=== PATIENT | male | born 1965 | race Caucasian/White ===

== ENCOUNTER 2024-01-24 10:13 | Outpatient (AMB) | payer OTHER, SELFPAY ==
--- NOTE | 2024-01-24 10:17 | MHC.OFFWIV ---
Intake Vital Signs 01/24/24 10:38 Height 5 ft 8 in Weight 141 lb BMI 21.4 BP 140/70 H Blood Pressure Location Lt brachial Position Sitting Pulse 97 Pulse Source Pulse Oximeter Temp 97.7 F Temp Source Temporal Artery Scan Pulse Oximetry (%) 99 Oxygen Delivery Method Room Air Intake Visit Reasons: EP Toe/Finger swelling after touching plant Intake Note: pt is here today for toe/finger swelling after touching plant started 1 week ago Patient Tobacco Use Status: Current everyday Tobacco user Allergies efavirenz [From Atripla] Allergy (Mild, Verified 01/24/24 10:45) flu symtoms emtricitabine [From Atripla] Allergy (Mild, Verified 01/24/24 10:45) flu symtoms Penicillins Allergy (Mild, Verified 01/24/24 10:44) tough swelling tenofovir [From Atripla] Allergy (Mild, Verified 01/24/24 10:45) flu symtoms Medication List - Last Reconciled 01/24/24 by Nacho Garcia MD No Known Home Meds Do you need a note to return to daycare/school/sports/work: No HPI EP Toe/Finger swelling after touching plant HPI Details Patient is a 58-year-old gentleman came in today to be evaluated for possible infection in his hand Patient touched a planned a week ago and after that he started feeling itchy in his fingers, he thought it will get better he has been taking Benadryl which is helping Swelling comes back On examination he does have puncture stepan on his fingers both hands With slight swelling, range of motion of fingers is almost full There is no pus, wrist has full range of motion I am treating him with doxycycline b.i.d. for 10 days And prednisone 20 mg once a day for 7 days Patient was instructed to stay away from plants and garden until hands or healing If his symptoms do not improve within 24-48 hours with medications he need to see a provider again He has no fever there is no chills no nausea vomiting no headache Patient had tetanus vaccine within 2 years he tells me. And he is sure about it [facility] Social History Patient Tobacco Use Status: Current everyday Tobacco user Review of Systems Const All systems reviewed & are unremarkable except as noted in HPI and below Physical Exam Vital Signs: Last Vital Signs Temp 97.7 F 01/24/24 10:38 Pulse 97 01/24/24 10:38 BP 140/70 H 01/24/24 10:38 Pulse Ox 99 01/24/24 10:38 Oxygen Delivery Method Room Air 01/24/24 10:38 BMI result Body Mass Index 21.4 Const General: no acute distress Orientation/consciousness: patient oriented x3 Eyes General: appearance normal, both eyes and all related structures Resp Effort & Inspection: normal respiratory effort and able to speak in complete sentences Auscultation: clear to auscultation bilaterally Neuro General: patient oriented x3 Extrem Hand/finger images: 1. Puncture amaya in different fingers with swelling of fingers, no pus no fluctuation, range of motion of fingers are almost fall, wrist with full range of motion without pain Psych Mental Status: mental status grossly normal Assessment & Plan Assessment & Plan (1) Cellulitis of hand: Code(s): L03.119 - Cellulitis of unspecified part of limb (2) Contact dermatitis: Code(s): L25.9 - Unspecified contact dermatitis, unspecified cause Qualifiers: Contact dermatitis type: allergic Contact dermatitis trigger: non-food plants Qualified Code(s): L23.7 - Allergic contact dermatitis due to plants, except food Plan Patient is a 58-year-old gentleman came in today to be evaluated for possible infection in his hand Patient touched a planned a week ago and after that he started feeling itchy in his fingers, he thought it will get better he has been taking Benadryl which is helping Swelling comes back On examination he does have puncture stepan on his fingers both hands With slight swelling, range of motion of fingers is almost full There is no pus, wrist has full range of motion I am treating him with doxycycline b.i.d. for 10 days And prednisone 20 mg once a day for 7 days Patient was instructed to stay away from plants and garden until hands or healing If his symptoms do not improve within 24-48 hours with medications he need to see a provider again He has no fever there is no chills no nausea vomiting no headache Patient had tetanus vaccine within 2 years he tells me. And he is sure about it Medications: New prednisone 20 mg PO DAILY 7 days 7 tabs 0RF doxycycline hyclate 100 mg PO BID 10 days 20 tabs 0RF Coding Level of Care Code Est Pt Level 4 (56307) Diagnoses Cellulitis of hand L03.119 Allergic contact dermatitis due to plants, except food L23.7 Contact dermatitis type: allergic Contact dermatitis trigger: non-food plants
[2024-01-24 10:38] VITALS: BP 140/70; PULSE 97; TEMP 36.5; O2SAT 99; BMI 21.4
== END 2024-01-24 11:26 | disposition home or self-care (01) ==
PROVIDERS: PCP Internal Medicine; Visit Provider Internal Medicine
DX: L03.119 Cellulitis of unspecified part of limb (principal); L23.7 Allergic contact dermatitis due to plants, except food
CPT/HCPCS: 99214

== ENCOUNTER 2024-02-21 13:32 | Outpatient (AMB) | payer OTHER, SELFPAY ==
[2024-02-21 13:52] VITALS: PULSE 103; TEMP 37.1; O2SAT 99; BMI 21.7
--- NOTE | 2024-02-21 13:52 | A.OFFVIS_ITS ---
Vital Signs 02/21/24 13:52 Height 5 ft 8 in Weight 143 lb BMI 21.7 Pulse 103 H Pulse Source Pulse Oximeter Temp 98.8 F Temp Source Oral Pulse Oximetry (%) 99 Intake Visit Reasons: HIV [place] transfer Allergies efavirenz [From Atripla] Allergy (Mild, Verified 02/21/24 13:53) flu symtoms emtricitabine [From Atripla] Allergy (Mild, Verified 02/21/24 13:53) flu symtoms Penicillins Allergy (Mild, Verified 02/21/24 13:53) tough swelling tenofovir [From Atripla] Allergy (Mild, Verified 02/21/24 13:53) flu symtoms HPI HPI HIV [place] transfer: Details: He had been seeing [facility] in [place] for HIV care. He was diagnosed in 1986 with HIV and had pneumonia. He had last CD4 count of 567 on 06/2023 and viral load undetectable. He is on Biktarvy. [facility] Medical History Fever HIV (human immunodeficiency virus infection) Social History Patient Tobacco Use Status: Current everyday Tobacco user Review of Systems Const All systems reviewed & are unremarkable except as noted in HPI and below Physical Exam Vital Signs: Last Vital Signs Temp 98.8 F 02/21/24 13:52 Pulse 103 H 02/21/24 13:52 Pulse Ox 99 02/21/24 13:52 BMI result Body Mass Index 21.7 Const General: cooperative Orientation/consciousness: patient oriented x3 HEENT Head: Yes normal to inspection Face and sinus: Yes normal facial exam Mouth: Normal oral and palatal mucosa present Teeth and gingiva: dentition normal Eyes General: appearance normal, both eyes and all related structures Pupils: Equal, round and reactive pupils present Resp Effort & Inspection: normal respiratory effort Cardio Rate: regular rate Rhythm: regular rhythm GI Palpation (GI): Soft to palpation and nontender General: Yes no CVA tenderness Back/Spine/Pelvis Back: no CVA tenderness Skin General skin exam: no rashes or lesions noted Neuro General: patient oriented x3 and moves all extremities Cranial nerves: Yes Equal, round and reactive pupils present Extrem General: Yes normal to inspection Psych Appearance: grossly normal Assessment & Plan Assessment & Plan (1) HIV (human immunodeficiency virus infection): Comment: He has been doing well He has had HIV for many years He has been doing well Code(s): B20 - Human immunodeficiency virus [HIV] disease Category: Medical Plan: Continue Biktarvy. Check labs again since last done 06/2023. Orders: Orders Basic Metabolic Panel 02/21/24 B20 - Human immunodeficiency virus [HIV] disease Liver Panel 02/21/24 B20 - Human immunodeficiency virus [HIV] disease HIV-1 RNA QN PCR Expanded 02/21/24 B20 - Human immunodeficiency virus [HIV] disease Syphilis Screen 02/21/24 B20 - Human immunodeficiency virus [HIV] disease T Spot TB 02/21/24 B20 - Human immunodeficiency virus [HIV] disease XR chest 2V 02/21/24 R50.9 - Fever, unspecified, B20 - Human immunodeficiency virus [HIV] disease Complete Blood Count Auto Diff 02/21/24 B20 - Human immunodeficiency virus [HIV] disease, R50.9 - Fever, unspecified Lymphocyte Subset Panel 3 02/21/24 B20 - Human immunodeficiency virus [HIV] disease Hepatitis C Antibody 02/21/24 B20 - Human immunodeficiency virus [HIV] disease Hepatitis A IgG 02/21/24 B20 - Human immunodeficiency virus [HIV] disease Medications: New rhcatihawu-divkurde-sesvjo ala 200-25-25 mg (Odefsey) must administer with a meal/food 1 tab PO DAILY 30 tabs 1RF 30 days Coding Level of Care Code New Pt Level 4 (69417) Diagnoses HIV (human immunodeficiency virus infection) B20
== END 2024-02-21 14:43 | disposition home or self-care (01) ==
PROVIDERS: PCP Internal Medicine; Visit Provider Internal Medicine
DX: B20 Human immunodeficiency virus [HIV] disease (principal)
CPT/HCPCS: 99204

== ENCOUNTER → 2024-02-21 13:32 | Outpatient (BNVA) | payer OTHER, SELFPAY | PROVIDERS: PCP Internal Medicine; Visit Provider Internal Medicine | DX: B20 Human immunodeficiency virus [HIV] disease (principal) | CPT/HCPCS: 99202 ==

== ENCOUNTER 2024-03-28 08:57 | Outpatient (REF) | payer MEDICAID, SELFPAY ==
[2024-03-28 15:01] LABS: MANUAL DIFF FLAG NO
[2024-03-28 15:04] LABS: Basophils Absolute Auto 0.1 X10*3/uL (0.0-0.2); Basophils Percent Auto 0.8 % (0-2); Eosinophils Absolute Auto 0.1 X10*3/uL (0.0-0.4); Eosinophils Percent Auto 1.3 % (0-4); Hematocrit 45.4 % (42.0-52.0); Imm Gran Abs Auto 0.02 X10*3/uL (0.00-0.03); Imm Gran Pct Auto 0.3 % (0.0-0.4); Lymphocytes Absolute Auto 2.2 X10*3/uL (1.2-4.9); Lymphocytes Percent Auto 36.2 % (20-40); Mean Corpuscular Hemoglobin 32.8 pg (27.0-33.0); Mean Corpuscular Volume 99.3 fL (80.0-98.0); Mean Platelet Volume 8.6 fL (9.4-12.4); Monocytes Absolute Auto 0.5 X10*3/uL (0.1-1.2); Monocytes Percent Auto 7.8 % (2-11); Neutrophils Absolute Auto 3.3 x10*3/uL (2.0-8.3); Neutrophils Percent Auto 53.6 % (45-73); Platelet Count 217 X10*3/uL (160-400); Red Blood Count 4.57 X10*6/uL (4.60-5.80); Red Cell Distribution Width 12.8 % (11.0-16.0); White Blood Count 6.1 X10*3/uL (4.8-10.8)
[2024-03-28 15:17] LABS: Alanine Aminotransferase 22 U/L (0-40); Albumin Level 4.3 g/dL (3.5-5.0); Alkaline Phosphatase 67 U/L (39-117); Anion Gap 12 (12-20); Aspartate Amino Transferase 18 U/L (5-37); Bilirubin Direct < 0.2 mg/dL (0.0-0.5); Bilirubin Total 0.2 mg/dL (0.0-1.0); Blood Urea Nitrogen 16 mg/dL (9-16); C Reactive Protein < 0.10 mg/dL (< or = 0.50); Calcium 9.7 mg/dL (8.4-10.2); Carbon Dioxide 24 mmol/L (22-29); Chloride 106 mmol/L (96-108); Cholesterol 196 mg/dL (<200); Estimated Glomerular Filt Rate > 60; Glucose Random 78 mg/dL (60-115); HDL Cholesterol 70 mg/dL (>40); LDL Cholesterol Calculated 109 mg/dL (<100); Potassium 4.2 mmol/L (3.3-5.1); Sodium 138 mmol/L (135-145); Total Protein 7.8 g/dL (6.5-8.0); Triglycerides 86 mg/dL (<150)
[2024-03-28 15:20] LABS: Anion Gap 12 (12-20); Blood Urea Nitrogen 16 mg/dL (9-16); Calcium 9.7 mg/dL (8.4-10.2); Carbon Dioxide 25 mmol/L (22-29); Chloride 106 mmol/L (96-108); Estimated Glomerular Filt Rate > 60; Glucose Random 82 mg/dL (60-115); Potassium 4.5 mmol/L (3.3-5.1); Sodium 138 mmol/L (135-145)
[2024-03-28 15:21] LABS: Rheumatoid Factor < 13.0 IU/mL (<15.0)
[2024-03-28 15:23] LABS: Estimated Average Glucose 100 mg/dL; Hemoglobin A1c % 5.1 % (<6.0)
[2024-03-28 15:39] LABS: TSH reflex Free T4 2.79 uIU/mL (0.32-4.0)
[2024-03-28 15:42] LABS: Erythrocyte Sedimentation Rate 5 MM/HR (0-15)
[2024-03-29 03:20] LABS: Syphilis Screen Nonreactive (Nonreactive)
[2024-03-29 04:33] LABS: ~HepC Num1 0.33 S/CO (0.00-0.79); ~Hepatitis C Antibody Nonreactive (Nonreactive)
[2024-03-29 04:38] LABS: HBS Num1 3.83 mIU/mL (0-7.99); HBc Num1 5.68 S/CO (0.00-0.79); ~Hepatitis B Surface Antibody NONREACTIVE (Nonreactive)
[2024-03-29 04:48] LABS: Hepatitis A Antibody IgG REACTIVE (Nonreactive); ~Hepatitis A Antibody IgG 1.05 S/CO (0.00-0.99)
[2024-03-29 05:43] LABS: HBc Num2 5.59 S/CO; HBc Num3 5.77 S/CO; Hepatitis B Core Antibody Reactive (Nonreactive)
[2024-03-29 05:44] LABS: HBsAGNum2 Reactive; HBsAGNum3 Reactive; HIV AB/AG Reactive (Nonreactive); Hepatitis B Surface Antigen Retest CNFM (Negative)
[2024-03-29 10:58] LABS: Absolute CD3 Count 1700 cells/uL (840-3060); Absolute CD4 Count 682 cells/uL (490-1740); Absolute CD8 Count 1025 cells/uL (180-1170); Absolute Lymphocytes 2362 cells/uL (850-3900); CD4 CD8 Ratio 0.67 (0.86-5.00); Percent CD3 Cells 72 % (57-85); Percent CD4 Cells 29 % (30-61); Percent CD8 Cells 43 % (12-42)
[2024-03-30 08:08] LABS: Hepatitis B Core Antibody IgM NON-REACTIVE (NON-REACTIVE)
[2024-03-30 13:29] LABS: HCV Log PCR <1.18 NOT DETECTED Log IU/mL (NOT DETECTED); HepC Viral Load <15 NOT DETECTED IU/mL (NOT DETECTED)
[2024-03-30 20:19] LABS: HIV RNA PCR Qn Copies 73 copies/mL (NOT DETECTED); HIV RNA PCR Qn Log Copies 1.86 (NOT DETECTED)
[2024-03-31 23:04] LABS: RPR Rapid Plasma Reagin NON-REACTIVE (NON-REACTIVE)
[2024-04-01 08:59] LABS: TS Negative Control Passed; TS Panel A 2; TS Panel B 1; TS Positive Control Passed; TSpotTB Negative (Negative)
[2024-04-01 12:23] LABS: HIV 1 Antibody POSITIVE (NEGATIVE); HIV 2 Antibody NEGATIVE (NEGATIVE)
[2024-04-01 15:13] LABS: Anti Nuclear Antibody Screen NEGATIVE (NEGATIVE)
== END 2024-03-28 08:58 | disposition home or self-care (01) ==
LOC: HO.CHCLDS 08:57
PROVIDERS: PCP Registered Nurse; Referring Provider Internal Medicine; Visit Provider Registered Nurse
DX: Z00.00 Encounter for general adult medical examination without abnormal findings (principal); B20 Human immunodeficiency virus [HIV] disease; M25.50 Pain in unspecified joint; R50.9 Fever, unspecified
CPT/HCPCS: 36415; 80048; 80053; 80061; 80076; 82248; 83036; 84443; 85025; 85652; 86038; 86140; 86359; 86360; 86431; 86481; 86592; 86701; 86702; 86704; 86705; 86706; 86708; 86780; 86803; 87340; 87389; 87522; 87536

== ENCOUNTER 2024-08-06 09:54 | Outpatient (REF) | payer MEDICAID, SELFPAY ==
[2024-08-06 11:39] LABS: MANUAL DIFF FLAG NO
[2024-08-06 11:57] LABS: Basophils Absolute Auto 0.1 X10*3/uL (0.0-0.2); Basophils Percent Auto 0.7 % (0-2); Eosinophils Absolute Auto 0.1 X10*3/uL (0.0-0.4); Eosinophils Percent Auto 0.9 % (0-4); Hematocrit 47.3 % (42.0-52.0); Hemoglobin 15.8 g/dl (14.0-18.0); Imm Gran Abs Auto 0.03 X10*3/uL (0.00-0.03); Imm Gran Pct Auto 0.4 % (0.0-0.4); Lymphocytes Absolute Auto 2.5 X10*3/uL (1.2-4.9); Lymphocytes Percent Auto 30.6 % (20-40); Mean Corpuscular HGB Conc 33.4 g/dl (31.0-36.0); Mean Corpuscular Hemoglobin 32.4 pg (27.0-33.0); Mean Corpuscular Volume 96.9 fL (80.0-98.0); Mean Platelet Volume 8.3 fL (9.4-12.4); Monocytes Absolute Auto 0.5 X10*3/uL (0.1-1.2); Neutrophils Percent Auto 61.4 % (45-73); Platelet Count 310 X10*3/uL (160-400); Red Blood Count 4.88 X10*6/uL (4.60-5.80); Red Cell Distribution Width 12.4 % (11.0-16.0); White Blood Count 8.1 X10*3/uL (4.8-10.8)
[2024-08-06 12:27] LABS: Alanine Aminotransferase 32 U/L (0-40); Albumin Level 4.3 g/dL (3.5-5.0); Alkaline Phosphatase 108 U/L (39-117); Anion Gap 16 (12-20); Aspartate Amino Transferase 22 U/L (5-37); Bilirubin Total 0.6 mg/dL (0.0-1.0); Blood Urea Nitrogen 11 mg/dL (9-16); Carbon Dioxide 31 mmol/L (22-29); Chloride 102 mmol/L (96-108); Estimated Glomerular Filt Rate > 60; Glucose Random 94 mg/dL (60-115); Potassium 4.3 mmol/L (3.3-5.1); Sodium 145 mmol/L (135-145); Total Protein 7.7 g/dL (6.5-8.0)
[2024-08-08 02:54] LABS: Varicella IgG Antibody 4.89 S/CO
[2024-08-08 03:09] LABS: Mumps Virus IgG Antibody <9.00 AU/mL; Rubella IgG Antibody 4.83 Index; Rubeola IgG (Measles) <13.50 AU/mL
[2024-08-08 14:34] LABS: HIV RNA PCR Qn Copies 38 copies/mL (NOT DETECTED); HIV RNA PCR Qn Log Copies 1.58 (NOT DETECTED)
== END 2024-08-06 09:55 | disposition home or self-care (01) ==
LOC: HO.HHCL 09:54
PROVIDERS: Visit Provider Internal Medicine
DX: B20 Human immunodeficiency virus [HIV] disease (principal)
CPT/HCPCS: 36415; 80053; 85025; 86735; 86762; 86765; 86787; 87536

== ENCOUNTER 2024-11-17 13:25 | Emergency (ER) | payer MEDICAID, SELFPAY ==
--- NOTE | 2024-11-17 | ECG_ITS ---
Test Reason : chest pain Blood Pressure : */* mmHG Vent. Rate : 121 BPM Atrial Rate : 121 BPM P-R Int : 156 ms QRS Dur : 88 ms QT Int : 320 ms P-R-T Axes : 67 75 40 degrees QTcB Int : 454 ms Sinus tachycardia Otherwise normal ECG No previous ECGs available Referred By: Theron Michelle Electronically Signed By: KALEIGH CHRISTIANSEN MD
--- NOTE | ~2024-11-17 | CT_ITS ---
CLINICAL HISTORY: ? PE CT angiography chest with contrast. 3D Postprocessing. Comparison: None Findings: The heart is normal size. RV/LV ratio is normal. Unremarkable thoracic aorta and great vessels. No aneurysm. No acute pulmonary embolus. The visualized thyroid and mediastinum are unremarkable. There are very mild emphysematous changes within the upper lobes. No consolidation or pleural effusion. Findings at the level of the abdomen are reported separately. The bones are intact. IMPRESSION: No evidence of pulmonary artery embolism. This document has been electronically signed by: Sameera Griffin MD on 11/17/2024 17:26:45
--- NOTE | ~2024-11-17 | CT_ITS ---
CLINICAL HISTORY: Elevated LFT CT abdomen and pelvis with contrast Comparison: None Findings: No consolidation or effusion. Unremarkable abdominal organs. No calcified gallstones. Severe thickening of the gallbladder wall. Small amount of pericholecystic fluid. Mild dilatation of the common bile duct. Moderate fecal retention within the proximal colon. No bowel obstruction. Pelvic contents unremarkable. Normal appendix. No acute fracture. No deep venous thrombosis at visualized levels. IMPRESSION: There is thickening of the gallbladder wall and a small amount of pericholecystic fluid raising the possibility of acute cholecystitis. There is also mild dilatation of the common bile duct. Recommend further evaluation with ultrasound. This document has been electronically signed by: Sameera Griffin MD on 11/17/2024 17:30:23
--- NOTE | ~2024-11-17 | XR_ITS ---
CLINICAL HISTORY: chest pain 1 view chest x-ray Comparison: None Findings: The lungs are clear. Normal size heart. No acute fracture. IMPRESSION: 1. No acute findings. This document has been electronically signed by: Sameera Griffin MD on 11/17/2024 15:40:22
[2024-11-17 13:47] VITALS: BP 146/87; PULSE 120; O2SAT 100
[2024-11-17 13:53] VITALS: BP 133/76; PULSE 126; RESP 20; TEMP 37.3; O2SAT 97; BMI 21.9
[2024-11-17 14:19] LABS: Basophils Percent Auto 0.2 % (0-2); Eosinophils Percent Auto 0.1 % (0-4); Hematocrit 41.1 % (42.0-52.0); Hemoglobin 14.5 g/dl (14.0-18.0); Imm Gran Abs Auto 0.02 X10*3/uL (0.00-0.03); Imm Gran Pct Auto 0.2 % (0.0-0.4); Lymphocytes Absolute Auto 0.4 X10*3/uL (1.2-4.9); Lymphocytes Percent Auto 4.6 % (20-40); MANUAL DIFF FLAG SCAN; Mean Corpuscular HGB Conc 35.3 g/dl (31.0-36.0); Mean Corpuscular Hemoglobin 32.7 pg (27.0-33.0); Mean Corpuscular Volume 92.8 fL (80.0-98.0); Monocytes Absolute Auto 0.2 X10*3/uL (0.1-1.2); Monocytes Percent Auto 1.9 % (2-11); Neutrophils Absolute Auto 8.2 x10*3/uL (2.0-8.3); Platelet Count 214 X10*3/uL (160-400); Red Blood Count 4.43 X10*6/uL (4.60-5.80); SCAN SMEAR FLAG 1; White Blood Count 8.8 X10*3/uL (4.8-10.8)
[2024-11-17 14:38] LABS: SLIDE REVIEW VERIFIED
[2024-11-17 14:44] LABS: Troponin-I High Sensitivity 3.4 ng/L (<3.5-35.0)
--- OUTSIDE RECORDS SUMMARY | 2024-11-17 14:46 | XMS_ITS | Patient Health Record ---
Author Organization [facility] Address [address], [place] [id number] Care Team Providers Care Senior Project Coordinator Name Role Phone [facility] Primary Care Provider Un available [facility], [facility] Unavailable [phone] Reason For Referral No Information Plan Of Treatment No Information Insurance Providers Payer Name Payer Address Payer Phone Subscriber Number Group Number Insured Name Patient Relationship to Insured Coverage Start Date Coverage End Date [facility] Be Healthy [address] [place] [phone] [id number] Francisco Resendiz Self - patient is the insured 3
[2024-11-17 14:56] LABS: Influenza A PCR NEGATIVE (Negative); Influenza B PCR NEGATIVE (Negative); Resp Syncy Virus RNA Qual PCR NEGATIVE (Negative); SARS COV2 PCR INHOUSE NEGATIVE (Negative)
--- NOTE | 2024-11-17 15:00 | ED.CHESTPAIN ---
HPI - Chest Pain General Chief Complaint: Chest Pain Stated Complaint: CHEST AND BACK PAIN Time Seen by Provider: 11/17/24 13:55 Source: patient Mode of arrival: ambulatory Limitations: no limitations History of Present Illness HPI narrative: This is a 59 years old the patient with history of HIV, anxiety, PTSD, substance abuse presented to the emergency department complaining of chest pain. He states that he has been sick for about a week having intermittent chest discomfort with the got worse while he was shoveling the snow. He was given aspirin by the time clock inspector. MD complaint: chest pain Onset (ago): day(s) (7) Timing of current episode: episodic Prior episodes: No Onset: during exertion Pain location: substernal Pain radiation: back Severity: moderate Quality: aching Relieving factors: nothing Exacerbating factors: exertion Risk Factors Coronary artery disease risk factors: smoking history Related Data Home Medications ?Medication ?Instructions ?Recorded ?Confirmed aspirin 81 mg tablet,delayed 81 mg PO DAILY 02/21/24 release baclofen 20 mg tablet 20 mg PO DAILY 02/21/24 bupropion HCl 300 mg 24 hr tablet, 300 mg PO QAM 02/21/24 extended release emtricitabine 200 mg-rilpivirine 1 tab PO DAILY 02/21/24 25 mg-tenofovir alafenam 25 mg tablet (Akshat) loperamide 2 mg capsule 2 mg PO Q6H PRN 02/21/24 methylphenidate HCl 20 mg biphasic 20 mg PO DAILY 02/21/24 50-50 capsule,extended release prazosin 2 mg capsule 2 mg PO BEDTIME 02/21/24 Previous Rx's ?Medication ?Instructions ?Recorded doxycycline hyclate 100 mg tablet 100 mg PO BID 10 days #20 tabs 01/24/24 prednisone 20 mg tablet 20 mg PO DAILY 7 days #7 tabs 01/24/24 emtricitabine 200 mg-rilpivirine 1 tab PO DAILY 30 days #30 tabs 02/23/24 25 mg-tenofovir alafenam 25 mg tablet (Akshat) Allergies Allergy/AdvReac Type Severity Reaction Status Date / Time efavirenz [From Atripla] Allergy Mild flu symtoms Verified 11/17/24 13:54 emtricitabine [From Atripla] Allergy Mild flu symtoms Verified 11/17/24 13:54 Penicillins Allergy Mild tough Verified 11/17/24 13:54 swelling tenofovir [From Atripla] Allergy Mild flu symtoms Verified 11/17/24 13:54 abacavir [From Ziagen] Allergy Angioedema Verified 11/17/24 13:54 Review of Systems Constitutional: Constitutional: Reports no additional constitutional complaints Cardiovascular: Cardiovascular: Reports no additional cardiovascular complaints Musculoskeletal: Musculoskeletal: Reports no additional musculoskeletal complaints Integumentary/Breasts: Skin/Breast: Reports system reviewed and no additional complaints, except as docu [facility] Past Medical History Medical History Fever HIV (human immunodeficiency virus infection) Social History Social History Patient Tobacco Use Status: Current everyday Tobacco user Advance Directives: No Advance Directives Information Provided: No Do you have a plan to hurt others: No Plan Physical Exam Vital Signs: Vital Signs: Last Vital Signs Temp 0 F L 11/17/24 17:30 Pulse 0 L 11/17/24 17:30 Resp 0 L 11/17/24 17:30 BP 0/0 L 11/17/24 17:30 Pulse Ox 0 L 11/17/24 17:30 O2 Del Method Room Air 11/17/24 13:53 BMI result Body Mass Index 21.9 No acute distress comfortable in the stretcher Const: General: cooperative Nutritional Appearance: average body habitus Orientation/consciousness: patient oriented x3 Limitations: no limitations HEENT: Head: Yes normal to inspection Ears: hearing grossly normal bilaterally General nose exam: Normal nares present Face and sinus: Yes normal facial exam Neck: Neck: Yes normal visual inspection and Yes full ROM Chest: Chest palpation & inspection: normal inspection of the chest Resp: Effort & Inspection: normal respiratory effort Auscultation: clear to auscultation bilaterally Cardio: Jugular venous distension: no JVD Rate: regular rate Rhythm: regular rhythm GI: Inspection: Yes normal to inspection Palpation (GI): Soft to palpation, not firm, nontender and no guarding Percussion: Yes normal to percussion Skin: General skin exam: no rashes or lesions noted, elasticity normal and turgor normal Neuro: General: patient oriented x3 Course Reevaluation(s) Reevaluation #1: Patient requested discharge, requested to go outside smoking, we offered nicotine patch and nicotine gum, but he refused. He wants to leave against medical advice he understands the risk including , we were going to repeat the 2nd troponin we were going to wait for the results of the scan chest and abdomen done because elevated LFT.. Also he is tachycardic. At this point he has decision-making capacity, I can not take his right away sign against medical advice. Patient does not want to wait signed against medical advice understand risk Time: 17:15 Reevaluation #2: Patient already left against medical advice before the CT scan was resulted CT scan showed the evidence of cholecystitis. I called the patient [phone] I asked him to come back to the emergency room to be admitted he answered I will think about I explained to him that his LFT are elevated as well he could get septic,but does not want to come back tonight. I gave him also the number of the surgeon front end developer javascript html css [phone] Dr Reddy ,again he refused to return to the ED Time: 19:29 Medications Administered Discontinued Medications Generic Name Dose Route Start Last Admin Trade Name Javad PRN Reason Stop Dose Admin Sodium Chloride 1,000 mls @ 999 mls/hr 11/17/24 15:00 11/17/24 16:41 Ns IVCONT 11/17/24 16:00 Infused .Q1H1M SUNDEEP Infusion Iohexol 100 ml 11/17/24 16:15 11/17/24 16:15 Iohexol 350 Mg/Ml 100 Ml Infus..Btl IV 11/17/24 16:16 85 ml ONCE ONE Administration Lorazepam 1 mg 11/17/24 14:55 11/17/24 15:29 Lorazepam 2 Mg/Ml Vial IVPUSH 11/17/24 14:56 1 mg ONCE ONE Administration Medical Decision Making Medical Decision Making [facility] Narrative: Patient presented with generalized malaise chest pain for at least 6 days we will obtain electrocardiogram and chest x-ray I sensitive troponin Differential Diagnosis Differential Diagnoses: The differential diagnosis associated with the presentation includes ACS/pulmonary emboli/aortic dissection Admission/Observation Consideration of admission/observation: Escalation of care including admission/observation considered Lab Data [facility] Lab Attestation statement: I reviewed the patient's lab results. 11/17/24 14:13 11/17/24 14:13 Labs: Lab Results 11/17/24 11/17/24 Range/Units 14:13 14:14 WBC 8.8 (4.8-10.8) X10*3/uL RBC 4.43 L (4.60-5.80) X10*6/uL Hgb 14.5 (14.0-18.0) g/dl Hct 41.1 L (42.0-52.0) % MCV 92.8 (80.0-98.0) fL MCH 32.7 (27.0-33.0) pg MCHC 35.3 (31.0-36.0) g/dl RDW 12.0 (11.0-16.0) % Plt Count 214 D (160-400) X10*3/uL MPV 8.0 L (9.4-12.4) fL Immature Gran % (Auto) 0.2 (0.0-0.4) % Neut % (Auto) 93.0 H (45-73) % Lymph % (Auto) 4.6 L (20-40) % [place] % (Auto) 1.9 L (2-11) % Eos % (Auto) 0.1 (0-4) % Baso % (Auto) 0.2 (0-2) % Lymph # (Auto) 0.4 L (1.2-4.9) X10*3/uL [place] # (Auto) 0.2 (0.1-1.2) X10*3/uL Eos # (Auto) 0.0 (0.0-0.4) X10*3/uL Baso # (Auto) 0.0 (0.0-0.2) X10*3/uL Abs Immat Gran (auto) 0.02 (0.00-0.03) X10*3/uL Absolute Neuts (auto) 8.2 (2.0-8.3) x10*3/uL Absolute Nucleated RBC 0.000 (0.0-0.012) X10*3/uL Nucleated RBC % (auto) 0.0 (0.0-0.2) /100WBC Smear Tech's Comments VERIFIED Sodium 138 (135-145) mmol/L Potassium 3.8 (3.3-5.1) mmol/L Chloride 105 (96-108) mmol/L Carbon Dioxide 20 L (22-29) mmol/L Anion Gap 17 (12-20) BUN 14 (9-16) mg/dL Creatinine 0.78 (0.5-1.4) mg/dL Estim Creat Clear Calc 93.8 Estimated GFR > 60 Random Glucose 100 (60-115) mg/dL Calcium 9.4 (8.4-10.2) mg/dL Total Bilirubin 3.8 H (0.0-1.0) mg/dL AST 145 H (5-37) U/L ALT 155 H (0-40) U/L Alkaline Phosphatase 343 H (39-117) U/L Troponin I High Sens 3.4 (<3.5-35.0) ng/L Total Protein 8.0 (6.5-8.0) g/dL Albumin 4.0 (3.5-5.0) g/dL Lipase 123 H (8-78) U/L Influenza Type A (PCR) NEGATIVE (Negative) Influenza Type B (PCR) NEGATIVE (Negative) RSV RNA Qual (PCR) NEGATIVE (Negative) SARS-CoV-2 RNA (RT-PCR) NEGATIVE (Negative) Independent Interpretation I performed an independent interpretation of an: EKG Interpretation: EKG was reviewed interpreted by me as a sinus tach no acute ischemic changes Discharge Plan Discharge Clinical Impression: Elevated LFTs Chest pain Qualifiers: Chest pain type: unspecified Qualified Code(s): R07.9 - Chest pain, unspecified Patient Disposition: Left Against Medical Advice Prescriptions: No Action prednisone 20 mg tablet 20 mg PO DAILY 7 Days Qty: 7 0RF doxycycline hyclate 100 mg tablet 100 mg PO BID 10 Days Qty: 20 0RF Odefsey 200-25-25 mg tablet 1 tab PO DAILY Rx Instructions: must administer with a meal/food loperamide 2 mg capsule 2 mg PO Q6H PRN aspirin 81 mg tablet,delayed release (DR/EC) 81 mg PO DAILY baclofen 20 mg tablet 20 mg PO DAILY methylphenidate HCl 20 mg capsule,ER biphasic 50-50 20 mg PO DAILY bupropion HCl 300 mg tablet extended release 24 hr 300 mg PO QAM prazosin 2 mg capsule 2 mg PO BEDTIME Odefsey 200-25-25 mg tablet 1 tab PO DAILY 30 Days Qty: 30 1RF Rx Instructions: must administer with a meal/food Stand Alone Forms: Against Medical Advice Interventions: ED Discharge Assessment Last Done: 11/17/24 17:30 Discharge Date/Time: 11/17/24 17:20 Print Language: Tuvaluan
[2024-11-17 15:01] LABS: Alanine Aminotransferase 155 U/L (0-40); Alkaline Phosphatase 343 U/L (39-117); Anion Gap 17 (12-20); Aspartate Amino Transferase 145 U/L (5-37); Bilirubin Total 3.8 mg/dL (0.0-1.0); Blood Urea Nitrogen 14 mg/dL (9-16); Calcium 9.4 mg/dL (8.4-10.2); Carbon Dioxide 20 mmol/L (22-29); Chloride 105 mmol/L (96-108); Creatinine Clr Calc Pharmacy 93.8; Estimated Glomerular Filt Rate > 60; Glucose Random 100 mg/dL (60-115); Potassium 3.8 mmol/L (3.3-5.1); Sodium 138 mmol/L (135-145)
[2024-11-17] MEDS: 0.9 % Sodium Chloride 1,000 ML 999 ML IVCONT (15:26)
[2024-11-17] MEDS: LORazepam 2 MG/ML VIAL 1 MG IVPUSH (15:29)
[2024-11-17 15:31] LABS: Lipase 123 U/L (8-78)
[2024-11-17] MEDS: iohexoL 350 MG/ML 100 ML INFUS..BTL IV (16:15)
--- NOTE | 2024-11-17 17:24 | PC.NURSE ---
patient was provided a meal around 4:30pm and was happy calm cooperative. patient suddenly after meal had to urinate and after RN went to obtain urine and pt had cigarette in hand. patient wanted to go outside to smoke and RN stated that he can not at this time but can be provided alternatives while waiting, such as gum or a patch. Pt became agitated and did not want to further cooperate with care. MD asked to come bedside and speak with pt. pt refused further diagnostics or to wait for CT scan results. AMA forms obtained and signed. IV d/c dsd applied. pt assisted to triage with security at side for ride home.
[2024-11-17 17:30] VITALS: BP 0/0; PULSE 0; RESP 0; TEMP -17.7; TEMP 0; O2SAT 0
== END 2024-11-17 17:20 | disposition left against medical advice (07) ==
PROVIDERS: Emergency Medicine; Emergency Provider Emergency Medicine
DX: R07.89 Other chest pain (principal); M54.50 Low back pain, unspecified; R79.89 Other specified abnormal findings of blood chemistry; R11.0 Nausea; R00.0 Tachycardia, unspecified; R10.2 Pelvic and perineal pain; Z03.818 Encounter for observation for suspected exposure to other biological agents ruled out; Z87.891 Personal history of nicotine dependence; Z79.899 Other long term (current) drug therapy
CPT/HCPCS: 0241U; 36415; 71045; 71275; 74177; 80053; 83690; 84484; 85025; 93005; 96361; 96374; 99283; 99284; J2060; Q9967

== ENCOUNTER → 2024-11-17 14:27 | Outpatient (BNV) | payer MEDICAID, SELFPAY | PROVIDERS: Emergency Provider Emergency Medicine; Visit Provider Internal Medicine Cardiovascular Disease | DX: R07.9 Chest pain, unspecified (principal); R00.0 Tachycardia, unspecified | CPT/HCPCS: 93010 ==

== ENCOUNTER → 2024-11-17 14:40 | Outpatient (BNV) | payer MEDICAID, SELFPAY | PROVIDERS: Emergency Provider Emergency Medicine; Visit Provider Radiology Diagnostic Radiology | DX: R74.01 Elevation of levels of liver transaminase levels (principal); R07.9 Chest pain, unspecified; M54.9 Dorsalgia, unspecified | CPT/HCPCS: 71045; 71275; 74177 ==

== ENCOUNTER 2024-11-22 08:42 | Outpatient (REF) | payer MEDICAID, SELFPAY ==
--- OUTSIDE RECORDS SUMMARY | 2024-11-25 08:45 | XMS_ITS | Patient Health Record ---
Author Organization [facility] Address [address], [place] [id number] Care Team Providers Care Solution Consultant Name Role Phone [facility] Primary Care Provider Un available [facility], [facility] Unavailable [phone] Reason For Referral No Information Plan Of Treatment No Information Insurance Providers Payer Name Payer Address Payer Phone Subscriber Number Group Number Insured Name Patient Relationship to Insured Coverage Start Date Coverage End Date [facility] Be Healthy [address] [place] [phone] [id number] Francisco Resendiz Self - patient is the insured 3
== END 2024-11-22 08:43 | disposition home or self-care (01) ==
LOC: HO.HOSX 08:42
PROVIDERS: Visit Provider Physician Assistant
DX: Z13.89 Encounter for screening for other disorder (principal)

== ENCOUNTER 2024-12-19 12:40 | Outpatient (REF) | payer MEDICAID, SELFPAY ==
--- OUTSIDE RECORDS SUMMARY | 2024-12-19 15:59 | XMS_ITS | Patient Health Record ---
Author Organization [facility] Address [address], [place] [id number] Care Team Providers Care Accounts Receivable Associate Name Role Phone [facility] Primary Care Provider Un available [facility], [facility] Unavailable [phone] Reason For Referral No Information Plan Of Treatment No Information Insurance Providers Payer Name Payer Address Payer Phone Subscriber Number Group Number Insured Name Patient Relationship to Insured Coverage Start Date Coverage End Date [facility] Be Healthy [address] [place] [phone] [id number] Francisco Resendiz Self - patient is the insured 3
[2024-12-19 16:11] LABS: MANUAL DIFF FLAG NO
[2024-12-19 16:23] LABS: Basophils Absolute Auto 0.1 X10*3/uL (0.0-0.2); Basophils Percent Auto 0.6 % (0-2); Eosinophils Absolute Auto 0.1 X10*3/uL (0.0-0.4); Eosinophils Percent Auto 0.9 % (0-4); Hemoglobin 15.3 g/dl (14.0-18.0); Imm Gran Abs Auto 0.03 X10*3/uL (0.00-0.03); Imm Gran Pct Auto 0.4 % (0.0-0.4); Lymphocytes Percent Auto 24.2 % (20-40); Mean Corpuscular HGB Conc 33.3 g/dl (31.0-36.0); Mean Corpuscular Hemoglobin 31.9 pg (27.0-33.0); Mean Platelet Volume 9.3 fL (9.4-12.4); Monocytes Absolute Auto 0.4 X10*3/uL (0.1-1.2); Monocytes Percent Auto 5.1 % (2-11); Neutrophils Absolute Auto 5.6 x10*3/uL (2.0-8.3); Neutrophils Percent Auto 68.8 % (45-73); Platelet Count 247 X10*3/uL (160-400); Red Blood Count 4.79 X10*6/uL (4.60-5.80); Red Cell Distribution Width 13.2 % (11.0-16.0); White Blood Count 8.2 X10*3/uL (4.8-10.8)
[2024-12-19 17:01] LABS: Alanine Aminotransferase 27 U/L (0-40); Albumin Level 4.1 g/dL (3.5-5.0); Alkaline Phosphatase 173 U/L (39-117); Aspartate Amino Transferase 22 U/L (5-37); Bilirubin Direct 0.3 mg/dL (0.0-0.5); Bilirubin Total 0.5 mg/dL (0.0-1.0); Total Protein 8.5 g/dL (6.5-8.0)
[2024-12-19 17:12] LABS: Prostate Specific Antigen 1.01 ng/mL (<0.05-4.0)
[2024-12-20 04:23] LABS: HBS Num1 2.61 mIU/mL (0-7.99); HBc Num1 9.89 S/CO (0.00-0.79); ~Hepatitis B Surface Antibody NONREACTIVE (Nonreactive)
[2024-12-20 05:25] LABS: HBc Num3 9.84 S/CO; HBsAGNum2 Reactive; HBsAGNum3 Reactive; Hepatitis B Core Antibody Reactive (Nonreactive); Hepatitis B Surface Antigen Retest CNFM (Negative)
[2024-12-20 14:48] LABS: HIV RNA PCR Qn Copies 135 copies/mL (NOT DETECTED); HIV RNA PCR Qn Copies 41 copies/mL (NOT DETECTED); HIV RNA PCR Qn Log Copies 1.61 (NOT DETECTED); HIV RNA PCR Qn Log Copies 2.13 (NOT DETECTED)
[2024-12-21 07:03] LABS: Hepatitis B Core Antibody IgM NON-REACTIVE (NON-REACTIVE)
[2024-12-24 14:33] LABS: Absolute CD4 Count 680 cells/uL (490-1740); Absolute CD8 Count 868 cells/uL (180-1170); Absolute Lymphocytes 2213 cells/uL (850-3900); CD4 CD8 Ratio 0.78 (0.86-5.00); Percent CD4 Cells 31 % (30-61); Percent CD8 Cells 39 % (12-42)
== END 2024-12-19 12:41 | disposition home or self-care (01) ==
LOC: HO.HHCL 12:40
PROVIDERS: Internal Medicine; Visit Provider Registered Nurse
DX: Z00.00 Encounter for general adult medical examination without abnormal findings (principal); B18.1 Chronic viral hepatitis B without delta-agent; B20 Human immunodeficiency virus [HIV] disease
CPT/HCPCS: 36415; 80076; 84153; 85025; 86360; 86704; 86705; 86706; 87340; 87536

== ENCOUNTER 2024-12-31 09:06 | Outpatient (AMB) | payer MEDICAID, SELFPAY ==
--- NOTE | 2024-12-31 09:19 | MHC.OFFVIS ---
Vital Signs 12/31/24 09:30 Height 5 ft 7 in Weight 147 lb 8 oz BMI 23.1 BP 154/88 H Blood Pressure Location Lt brachial Position Sitting Pulse 100 Intake Visit Reasons: gallbladder Intake Note: Patient is seen in office for evaluation of the gallbladder Pt c/o: admits to abdominal pain radiates to the groin, nausea, vomit, diarrhea, worse with meals, onset about 6 months, increase pain CT: 11/17/24 PCP:12/17/24 Mobile Application Architect Required: No Accompanied by: Self / Same As Patient Allergies efavirenz [From Atripla] Allergy (Mild, Verified 12/31/24 09:25) flu symtoms emtricitabine [From Atripla] Allergy (Mild, Verified 12/31/24 09:25) flu symtoms Penicillins Allergy (Mild, Verified 12/31/24 09:25) tough swelling tenofovir [From Atripla] Allergy (Mild, Verified 12/31/24 09:25) flu symtoms abacavir [From Ziagen] Allergy (Verified 12/31/24 09:25) Angioedema HPI Comments Details: 59-year-old male patient presenting with a past medical history of HIV on antiviral medication and a recent history of complaints of chest pain. He was evaluated in the emergency department and noted to have elevated LFTs. Subsequent CT abdomen and pelvis revealed a distended gallbladder with thickened wall and evidence of pericholecystic fluid. The common bile duct was noted to be mildly enlarged. No gallstones were noted by CT. Since this time he continues to have some right and left flank pain. He also describes a colic stool and dark urine. He denies nausea, vomiting, fever or chills. [facility] Medical History Fever HIV (human immunodeficiency virus infection) Social History Patient Tobacco Use Status: Current everyday Tobacco user Review of Systems Const All systems reviewed & are unremarkable except as noted in HPI and below Physical Exam Vital Signs: Last Vital Signs Pulse 100 12/31/24 09:30 BP 154/88 H 12/31/24 09:30 BMI result Body Mass Index 23.1 Const General: cooperative and no acute distress Nutritional Appearance: well nourished Orientation/consciousness: patient oriented x3 Limitations: no limitations HEENT Head: Yes normocephalic and Yes atraumatic Ears: hearing grossly normal bilaterally Resp Effort & Inspection: normal respiratory effort, no audible wheezes, no cough and no respiratory distress Cardio Jugular venous distension: no JVD GI Inspection: Yes normal to inspection Palpation (GI): Soft to palpation and Tenderness to palpation present (GI) in the epigastrum and in the RUQ; Barone's sign negative, with no rebound tenderness and Rovsing's sign negative Percussion: Yes normal to percussion Auscultation: normal bowel sounds Rectal Exam - Male: Yes deferred Skin Other: Warm, dry, no rash General skin exam: no rashes or lesions noted Neuro General: patient oriented x3 Extrem General: Yes no clubbing, cyanosis or edema Assessment & Plan Assessment & Plan (1) Cholecystitis: Code(s): K81.9 - Cholecystitis, unspecified Category: Medical Plan 59-year-old male patient presenting with complaints of abdominal pain with evidence of a thickened and enlarged gallbladder with no gallstones. His pain is somewhat atypical for cholecystitis although he does describe a colic stools which is concerning for common bile duct stone passage. He reports currently the symptoms have improved but he would really like his gallbladder out. I recommended obtaining an ultrasound of the abdomen to confirmed the CT findings and to evaluate for cholelithiasis. He expressed understanding and agrees with the plan. I recommended he return following the ultrasound to review the studies and discuss treatment options. Orders: Orders US abdomen complete Today K81.9 - Cholecystitis, unspecified Coding Level of Care Code New Pt Level 4 (40008) Diagnoses Cholecystitis K81.9
[2024-12-31 09:30] VITALS: BP 154/88; PULSE 100; BMI 23.1
--- OUTSIDE RECORDS SUMMARY | 2024-12-31 10:01 | XMS_ITS | Patient Health Record ---
Author Organization [facility] Address [address], [place] [id number] Care Team Providers Care Molecular Pathologist Name Role Phone [facility] Primary Care Provider Un available [facility], [facility] Unavailable [phone] Reason For Referral No Information Plan Of Treatment No Information Insurance Providers Payer Name Payer Address Payer Phone Subscriber Number Group Number Insured Name Patient Relationship to Insured Coverage Start Date Coverage End Date [facility] Be Healthy [address] [place] [address] [phone] [id number] Francisco Resendiz Self - patient is the insured 3
== END 2024-12-31 09:45 | disposition home or self-care (01) ==
LOC: HO.HGS 09:06
PROVIDERS: PCP Registered Nurse; Visit Provider Surgery
DX: K81.9 Cholecystitis, unspecified (principal)
CPT/HCPCS: 99204

== ENCOUNTER → 2024-12-31 09:06 | Outpatient (BNVA) | payer MEDICAID, SELFPAY | PROVIDERS: PCP Registered Nurse; Visit Provider Surgery | DX: K81.9 Cholecystitis, unspecified (principal); B20 Human immunodeficiency virus [HIV] disease; R07.9 Chest pain, unspecified | CPT/HCPCS: 99202 ==

== ENCOUNTER 2025-01-28 07:34 | Outpatient (REF) | payer MEDICAID, SELFPAY ==
--- NOTE | ~2025-01-28 | US_ITS ---
CLINICAL HISTORY: K81.9 - Cholecystitis, unspecified --- Additional Notes or Special Instructions: Ab dominal pain right upper quadrant radiating into the back US abdomen complete Comparison: None Findings: Gallbladder contracted and not well assessed. Apparent wall thickening may be due to contraction. Consider follow-up study after longer period of no oral intake. Alternatively, nuclear hepatobiliary scan may be of value. Common duct measures 8.6 mm. Positive sonographic Barone sign. Liver is homogeneous and normal in size and echogenicity. Main portal vein patent with normal direction of flow. Pancreas is unremarkable. Aorta and IVC patent and normal in caliber. The right kidney is normal, 12.0 cm in length. No focal abnormality or hydronephrosis. The left kidney is normal, 11.8 cm in length. No focal abnormality or hydronephrosis. The spleen is normal, 11.1 cm in length. No focal abnormality. Impression: Gallbladder contracted and not well assessed Common duct dilation noted with apparent gallbladder wall thickening Recommend either short-term repeat ultrasound or nuclear hepatobiliary scan This document has been electronically signed by: Jose Pelayo MD on 01/28/2025 20:24:35
--- OUTSIDE RECORDS SUMMARY | 2025-01-28 07:36 | XMS_ITS | Patient Health Record ---
Author Organization [facility] Address [address], [place] [id number] Care Team Providers Care Resin Coater Name Role Phone [facility] Primary Care Provider Un available [facility], [facility] Unavailable [phone] Reason For Referral No Information Plan Of Treatment No Information Insurance Providers Payer Name Payer Address Payer Phone Subscriber Number Group Number Insured Name Patient Relationship to Insured Coverage Start Date Coverage End Date [facility] Be Healthy [address] [place] [address] [id number] Francisco Resendiz Self - patient is the insured 3
== END 2025-01-28 07:35 | disposition home or self-care (01) ==
LOC: HO.HMGCX 07:34
PROVIDERS: PCP Registered Nurse; Visit Provider Surgery
DX: K81.9 Cholecystitis, unspecified (principal)
CPT/HCPCS: 76700

== ENCOUNTER → 2025-01-28 08:02 | Outpatient (BNV) | payer MEDICAID, SELFPAY | PROVIDERS: PCP Registered Nurse; Visit Provider Radiology Diagnostic Radiology | DX: K81.9 Cholecystitis, unspecified (principal); R10.11 Right upper quadrant pain | CPT/HCPCS: 76700 ==

== ENCOUNTER 2025-02-10 11:36 | Outpatient (AMB) | payer MEDICAID, SELFPAY ==
--- NOTE | 2025-02-10 11:37 | A.OFFVIS_ITS ---
Vital Signs 02/10/25 11:43 Height 5 ft 7 in Weight 140 lb 4 oz BMI 22.0 BP 114/84 Blood Pressure Location Lt brachial Position Sitting Pulse 111 H Intake Visit Reasons: s/p US 01/28/25 Intake Note: Patient is seen in office for ultrasound results, following gallbladder. Pt c/o: continued pain, diarrhea after every meal, here to discuss possible removal of the gallbladder CT:01/28/25 Geotechnical Engineering Technician Required: No Accompanied by: Self / Same As Patient Allergies efavirenz [From Atripla] Allergy (Mild, Verified 12/31/24 09:25) flu symtoms emtricitabine [From Atripla] Allergy (Mild, Verified 12/31/24 09:25) flu symtoms Penicillins Allergy (Mild, Verified 12/31/24 09:25) tough swelling tenofovir [From Atripla] Allergy (Mild, Verified 12/31/24 09:25) flu symtoms abacavir [From Ziagen] Allergy (Verified 12/31/24 09:25) Angioedema HPI Comments Details: 59-year-old male patient returning for re-evaluation of his abdominal pain felt mainly in the right upper quadrant. His past medical history is significant for HIV, hypertension, neuropathy, ADD, PTSD and tobacco use. Since his last visit he reports persistent pain mainly in the right upper quadrant radiating into the right back. This evaluation in the emergency department revealed elevated liver function tests. Subsequent CT abdomen and pelvis revealed distended gallbladder with thickened wall without evidence of gallstones. There was evidence of pericholecystic fluid. The common bile duct was mildly enlarged at 8 mm. He reports losing weight since his last visit but occasionally feels bloated. He underwent ultrasound of the abdomen which revealed a contracted gallbladder with a thickened gallbladder wall but no definite cholelithiasis. He denies nausea, vomiting, fever or chills. He reports a prior history of a cervical disc injury but denies injury to the lower spine. He presents today to discuss possible cholecystectomy. [facility] Medical History Fever HIV (human immunodeficiency virus infection) Social History Patient Tobacco Use Status: Current everyday Tobacco user Review of Systems Const All systems reviewed & are unremarkable except as noted in HPI and below Physical Exam Const General: cooperative and no acute distress Nutritional Appearance: well nourished Orientation/consciousness: patient oriented x3 Limitations: no limitations HEENT Head: Yes normocephalic and Yes atraumatic Ears: hearing grossly normal bilaterally Resp Effort & Inspection: normal respiratory effort, no audible wheezes, no cough and no respiratory distress Cardio Jugular venous distension: no JVD GI Inspection: Yes normal to inspection Palpation (GI): Soft to palpation and Tenderness to palpation present (GI) in the epigastrum and in the RUQ; Barone's sign negative, with no rebound tenderness and Rovsing's sign negative Percussion: Yes normal to percussion Auscultation: normal bowel sounds Rectal Exam - Male: Yes deferred Skin Other: Warm, dry, no rash General skin exam: no rashes or lesions noted Neuro General: patient oriented x3 Extrem General: Yes no clubbing, cyanosis or edema Assessment & Plan Assessment & Plan (1) Cholecystitis: Code(s): K81.9 - Cholecystitis, unspecified Category: Medical (2) Acalculous cholecystitis: Code(s): K81.9 - Cholecystitis, unspecified Category: Medical Plan 59-year-old male patient presenting with persistent abdominal pain and tenderness in the right upper quadrant radiating to the back. Workup with both CT and ultrasound confirmed a thickened gallbladder wall with no definite coli lithiasis appreciated. Common bile duct is mildly dilated although no common duct stones are identified. Radiologic findings are suggestive of cholecystitis although it is difficult to know for sure if cholecystectomy will improve his symptoms. I reviewed the procedure, risks, and alternatives to laparoscopic or possible open cholecystectomy in detail and he consents to the surgery. He understands that it is possible that his symptoms we will continue following the cholecystectomy. He wishes to proceed with the surgery. Coding Level of Care Code Est Pt Level 4 (80936) Diagnoses Cholecystitis K81.9 Acalculous cholecystitis K81.9
[2025-02-10 11:43] VITALS: BP 114/84; PULSE 111; BMI 22.0
== END 2025-02-10 12:06 | disposition home or self-care (01) ==
LOC: HO.HGS 11:36
PROVIDERS: PCP Registered Nurse; Visit Provider Surgery
DX: K81.9 Cholecystitis, unspecified (principal)
CPT/HCPCS: 99214

== ENCOUNTER → 2025-02-10 11:36 | Outpatient (BNVA) | payer MEDICAID, SELFPAY | PROVIDERS: PCP Registered Nurse; Visit Provider Surgery | DX: K81.9 Cholecystitis, unspecified (principal) | CPT/HCPCS: 99212 ==

== ENCOUNTER → 2025-03-26 06:06 | Day surgery (SDC) | payer MEDICAID, SELFPAY ==
--- OUTSIDE RECORDS SUMMARY | 2025-02-14 06:42 | XMS_ITS | Patient Health Record ---
Author Organization [facility] Address [address], [place] [phone] Care Team Providers Care Subsurface Augmentee Elint Operator Name Role Phone [facility] Primary Care Provider Un available [facility], [facility] Unavailable [phone] Reason For Referral No Information Plan Of Treatment No Information Insurance Providers Payer Name Payer Address Payer Phone Subscriber Number Group Number Insured Name Patient Relationship to Insured Coverage Start Date Coverage End Date [facility] Be Healthy [address] [place] [address] [id number] Francisco Resendiz Self - patient is the insured 3
[2025-03-24 07:45] VITALS: BMI 21.9
--- NOTE | 2025-03-25 08:59 | HO.ANESPROP2 ---
HPI - Anesthesia Eval Consult details Narrative: 59yo M for Cholecystectomy Laparoscopic,possible open PMFSH Active Problems Active Problems: All Active Problems Acalculous cholecystitis (Acute) Cholecystitis (Acute) Contact dermatitis (Acute) Cellulitis of hand (Acute) Fever (Acute) HIV (human immunodeficiency virus infection) (Acute) Past Medical History Medical History (Updated 03/24/25 @ 07:51 by Clara Levi RN) Diarrhea Tobacco dependence Neuropathy CVA (cerebral vascular accident) Hepatitis HTN (hypertension) PTSD (post-traumatic stress disorder) ADD (attention deficit disorder) Fever HIV (human immunodeficiency virus infection) Social History Social History Patient Tobacco Use Status: Current everyday Tobacco user Meds Allergies Allergy/AdvReac Type Severity Reaction Status Date / Time efavirenz [From Atripla] Allergy Mild flu symtoms Verified 12/31/24 09:25 emtricitabine [From Atripla] Allergy Mild flu symtoms Verified 12/31/24 09:25 Penicillins Allergy Mild tough Verified 12/31/24 09:25 swelling tenofovir [From Atripla] Allergy Mild flu symtoms Verified 12/31/24 09:25 abacavir [From Ziagen] Allergy Angioedema Verified 12/31/24 09:25 Sulfa (Sulfonamide Allergy Unknown Verified 03/24/25 07:48 Antibiotics) Home Medications ?Medication ?Instructions ?Recorded ?Confirmed ?Last Taken ?Type aspirin 81 mg tablet,delayed 81 mg PO DAILY 02/21/24 Unknown History release baclofen 20 mg tablet 20 mg PO DAILY 02/21/24 Unknown History bupropion HCl 300 mg 24 hr tablet, 300 mg PO QAM 02/21/24 Unknown History extended release loperamide 2 mg capsule 2 mg PO Q6H PRN 02/21/24 Unknown History methylphenidate HCl 20 mg biphasic 20 mg PO DAILY 02/21/24 Unknown History 50-50 capsule,extended release prazosin 2 mg capsule 2 mg PO BEDTIME 02/21/24 Unknown History lorazepam 0.5 mg tablet (Ativan) 0.5 mg PO DAILY PRN 12/31/24 Unknown History Exam Height,Weight and Vital Signs: Height 5 ft 7 in Weight 63.503 kg Pertinent Lab Results Pertinent Lab Results: Laboratory Tests 11/17/24 12/19/24 14:13 12:44 WBC 8.2 Hgb 15.3 Hct 46.0 Plt Count 247 Sodium 138 Potassium 3.8 Chloride 105 Carbon Dioxide 20 L BUN 14 Creatinine 0.78 Narrative Narrative: EKG 11/2024 Vent. Rate : 121 BPM Atrial Rate : 121 BPM P-R Int : 156 ms QRS Dur : 88 ms QT Int : 320 ms P-R-T Axes : 67 75 40 degrees QTcB Int : 454 ms Sinus tachycardia Otherwise normal ECG No previous ECGs available Assessment and Plan Assessment Anesthesia Assessment: Chart Reviewed
[2025-03-26 06:21] VITALS: BMI 22.8
[2025-03-26 06:45] VITALS: BP 153/94; PULSE 91; RESP 16; TEMP 36.6; O2SAT 98
[2025-03-26 07:12] LABS: Amphetamine Screen Urine POSITIVE (Not Detect); Barbiturates, Urine Not Detected (Not Detect); Benzodiazepines Screen Urine Not Detected (Not Detect); Buprenorphine Scr Not Detected (Not Detect); Cannabinoid Screen Urine Not Detected (Not Detect); Cocaine Screen Urine POSITIVE (Not Detect); Fentanyl, urine Not Detected (Not Detect); Methadone Screen, Urine Not Detected (Not Detect); Opiate Screen Urine Not Detected (Not Detect); Oxycodone Screen Urine Not Detected (Not Detect); Phencyclidine Screen Urine Not Detected (Not Detect)
--- NOTE | 2025-03-26 07:31 | PC.NURSE ---
cancelled due to positive salomon. patient aware of plan. no iv started or shave given.
== END ==
LOC: HO.SSS 06:08
PROVIDERS: Anesthesiology; PCP Registered Nurse; Visit Provider Surgery
DX: K81.9 Cholecystitis, unspecified (principal); Z53.09 Procedure and treatment not carried out because of other contraindication; R82.5 Elevated urine levels of drugs, medicaments and biological substances
CPT/HCPCS: 80307; J0665; J1836

== ENCOUNTER 2025-05-13 11:56 | Outpatient (REF) | payer MEDICAID, SELFPAY ==
--- OUTSIDE RECORDS SUMMARY | 2025-05-13 12:45 | XMS_ITS | Patient Health Record ---
Author Organization [facility] Address [address], [place] [phone] Care Team Providers Care Mark Up Designer Name Role Phone [facility] Primary Care Provider [facility], [facility] Unavailable [phone] Reason For Referral No Information Plan Of Treatment No Information Insurance Providers Payer Name Payer Address Payer Phone Subscriber Number Group Number Insured Name Patient Relationship to Insured Coverage Start Date Coverage End Date [facility] [address] [facility] [place] [phone] [id number] Francisco Resendiz Self - patient is the insured 3
[2025-05-13 13:17] LABS: MANUAL DIFF FLAG NO
[2025-05-13 13:21] LABS: Hematocrit 47.0 % (42.0-52.0); Hemoglobin 15.9 g/dl (14.0-18.0); Imm Gran Abs Auto 0.03 X10*3/uL (0.00-0.03); Imm Gran Pct Auto 0.4 % (0.0-0.4); Lymphocytes Absolute Auto 1.7 X10*3/uL (1.2-4.9); Mean Corpuscular HGB Conc 33.8 g/dl (31.0-36.0); Mean Corpuscular Hemoglobin 32.4 pg (27.0-33.0); Mean Corpuscular Volume 95.9 fL (80.0-98.0); NRBC Abs Auto 0.000 X10*3/uL (0.0-0.012); NRBC Pct Auto 0.0 /100WBC (0.0-0.2); Platelet Count 236 X10*3/uL (160-400); Red Blood Count 4.90 X10*6/uL (4.60-5.80); White Blood Count 7.9 X10*3/uL (4.8-10.8)
[2025-05-13 14:03] LABS: Alanine Aminotransferase 25 U/L (0-40); Albumin Level 4.4 g/dL (3.5-5.0); Alkaline Phosphatase 85 U/L (39-117); Anion Gap 11 (12-20); Aspartate Amino Transferase 25 U/L (5-37); Blood Urea Nitrogen 19 mg/dL (9-16); Calcium 9.1 mg/dL (8.4-10.2); Carbon Dioxide 27 mmol/L (22-29); Chloride 107 mmol/L (96-108); Cholesterol 177 mg/dL (<200); Estimated Glomerular Filt Rate > 60; HDL Cholesterol 59 mg/dL (>40); Potassium 4.7 mmol/L (3.3-5.1); Sodium 140 mmol/L (135-145); Total Protein 7.7 g/dL (6.5-8.0); Triglycerides 107 mg/dL (<150)
[2025-05-13 14:15] LABS: Syphilis Screen Nonreactive (Nonreactive)
[2025-05-13 14:17] LABS: Reflex LDLD? No
[2025-05-13 15:14] LABS: CT PCR Urine NOT DETECTED (Not Detect.); NG PCR Urine NOT DETECTED (Not Detect.)
[2025-05-14 16:08] LABS: Hepatitis B Viral DNA Qn - cp NOT DETECTED Log IU/mL (NOT DETECTED); Hepatitis B Viral DNA Qn-IU/mL NOT DETECTED (NOT DETECTED)
[2025-05-15 01:43] LABS: HIV RNA PCR Qn Copies 201 copies/mL (NOT DETECTED); HIV RNA PCR Qn Log Copies 2.30 (NOT DETECTED)
[2025-05-16 07:03] LABS: TS Negative Control Passed; TS Panel A 7; TS Panel B 6; TS Positive Control Passed; TSpotTB Borderline (Negative)
[2025-05-17 00:48] LABS: Absolute CD3 Count 1297 cells/uL (840-3060); Absolute CD8 Count 699 cells/uL (180-1170); Percent CD3 Cells 69 % (57-85); Percent CD8 Cells 37 % (12-42)
== END 2025-05-13 11:57 | disposition home or self-care (01) ==
LOC: HO.HHCL 11:56
PROVIDERS: PCP Registered Nurse; Referring Provider Internal Medicine; Visit Provider Family Medicine
DX: N49.2 Inflammatory disorders of scrotum (principal); B20 Human immunodeficiency virus [HIV] disease; Z11.3 Encounter for screening for infections with a predominantly sexual mode of transmission; Z11.1 Encounter for screening for respiratory tuberculosis; Z11.59 Encounter for screening for other viral diseases; Z11.8 Encounter for screening for other infectious and parasitic diseases
CPT/HCPCS: 36415; 80053; 80061; 85025; 86359; 86360; 86481; 86592; 86780; 87070; 87077; 87186; 87205; 87255; 87491; 87517; 87536; 87591; 87902

== ENCOUNTER 2025-06-27 13:00 | Outpatient (REF) | payer MEDICAID, SELFPAY ==
[2025-06-28 15:32] LABS: Hepatitis B Viral DNA Qn - cp NOT DETECTED Log IU/mL (NOT DETECTED); Hepatitis B Viral DNA Qn-IU/mL NOT DETECTED (NOT DETECTED)
== END 2025-06-27 13:01 | disposition home or self-care (01) ==
LOC: HO.CHCLDS 13:00
PROVIDERS: Visit Provider Internal Medicine
DX: B18.1 Chronic viral hepatitis B without delta-agent (principal)
CPT/HCPCS: 36415; 87517